=== PATIENT | male | born 1970 | race Caucasian/White ===

== ENCOUNTER 2019-06-12 14:38 | Emergency (ER) | payer OTHER ==
[~2019-06-12] VITALS: Ht 167.6 cm; Wt 184.2 kg
[2019-06-12 14:59] VITALS: BP 109/48
--- NOTE | 2019-06-12 15:05 | NUR ---
BIB MOTHER C/O CONGESTION AND MID CHEST PAIN X 2 WKS W/ INTERMITTENT SOB.PT AWAKE ,ALERT,AFEBRILE ,AMBULARORY WITH STEADY GAIT. SCE ,CBS ,PAIN AT 0/10 HX: HTN, CHF, OBESITY, DM, SLEEP APNEA
--- NOTE | 2019-06-12 15:34 | NUR ---
LORAINE ELIZALDE AT BEDSIDE EVALUATING PT.
--- NOTE | 2019-06-12 16:02 | NUR ---
DINESH LOVE AT BEDSIDE PT FOR EKG.
--- NOTE | 2019-06-12 16:15 | NUR ---
XRAY AT BEDSIDE.
--- NOTE | 2019-06-12 16:46 | NUR ---
LORAINE ELIZALDE AT BEDSIDE.
[2019-06-12 17:18] VITALS: BP 109/48
--- NOTE | 2019-06-12 17:18 | NUR ---
Patient discharged with v/s stable. Written and verbal after care instructions given and explained. Patient alert, oriented and verbalized understanding of instructions. Ambulatory with by parent. All questions addressed prior to discharge. ID band removed. Patient advised to follow up with PMD. Rx of Guaiatussin, Ventolin, Azithromycin given. Patient educated on indication of medication including possible reaction and side effects. Opportunity to ask questions provided and answered.
== END 2019-06-12 17:18 | disposition home or self-care (01) ==
LOC: MED 14:38
DX: J98.11 Atelectasis (principal); J45.909 Unspecified asthma, uncomplicated; E11.9 Type 2 diabetes mellitus without complications; I11.0 Hypertensive heart disease with heart failure; I50.9 Heart failure, unspecified; E66.9 Obesity, unspecified; G47.30 Sleep apnea, unspecified; Z88.0 Allergy status to penicillin; Z88.6 Allergy status to analgesic agent; Z88.2 Allergy status to sulfonamides; Z88.1 Allergy status to other antibiotic agents
CPT/HCPCS: 71045; 87804; 93005; 99284; Q0092

== ENCOUNTER 2019-07-13 14:26 | Emergency (ER) | payer OTHER ==
[~2019-07-13] VITALS: Ht 170.2 cm; Wt 184.2 kg
[2019-07-13 14:29] VITALS: BP 149/95
--- NOTE | 2019-07-13 14:35 | NUR ---
PT AMB TO BED 12 WITH STEADY GAIT
--- NOTE | 2019-07-13 14:55 | NUR ---
48YO M C/O ABDOMINAL PAIN AND FLANK PAIN X 3 DAYS. PT STATES PAIN WAS DULL, 6/10 OVER THE WEEKEND. PT DENIES FEVER, DYSURIA, NAUSEA AND VOMITING, BOWEL PROBLEMS. VSS. PT PRESENTLY WITH 0/10 PAIN. ABDOMEN SOFT, NON-TENDER, BS ACTIVE ON ALL QUADRANTS. PATIENT SITTING ON ROOM CHAIR COMFORTABLY. ER MD MADE AWARE OF PT STATUS. ALLERGIES: MOTRIN, PENICILLIN, BACTRIM PMH: KIDNEY STONES, UMBILICAL HERNIA, CHF, HTN, DM, OBESITY MEDS: ASPIRIN, SIMVASTATIN, FUROSEMIDE, METFORMIN, ATENOLOL, LISINOPRIL, FLUOXETINE
[2019-07-13 16:05] LABS: APPEARANCE,URINE CLEAR (CLEAR); BILIRUBIN,URINE NEGATIVE (NEGATIVE); BLOOD, URINE 2+ (NEGATIVE); COLOR,URINE YELLOW (YELLOW); LEUKOCYTE ESTERASE ,URINE NEGATIVE (NEGATIVE); NITRITE, URINE NEGATIVE (NEGATIVE); PH,URINE 5.5 (5.0-9.0); UGLUCOSE NEGATIVE (NEGATIVE)
[2019-07-13 16:21] LABS: WBC,URINE 0-5 /HPF (0-5)
[2019-07-13 17:00] VITALS: BP 149/95
== END 2019-07-13 17:00 | disposition home or self-care (01) ==
LOC: MED 14:26
DX: R10.9 Unspecified abdominal pain (principal); R11.0 Nausea; R19.7 Diarrhea, unspecified; J45.909 Unspecified asthma, uncomplicated; I11.0 Hypertensive heart disease with heart failure; I50.9 Heart failure, unspecified; E66.9 Obesity, unspecified; E11.9 Type 2 diabetes mellitus without complications; Z88.0 Allergy status to penicillin; Z88.1 Allergy status to other antibiotic agents; Z88.2 Allergy status to sulfonamides; Z88.8 Allergy status to other drugs, medicaments and biological substances; Z68.44 Body mass index [BMI] 60.0-69.9, adult; Z87.442 Personal history of urinary calculi
CPT/HCPCS: 81001; 99283